=== PATIENT | female | born 1965 | race Native Hawaiian/Other Pacific Islander ===

== ENCOUNTER 2016-09-23 02:26 | Emergency (ER) | payer OTHER ==
[~2016-09-23] VITALS: Ht 162.6 cm; Wt 63.0 kg
[2016-09-23 03:07] VITALS: BP 140/92; TEMP 97.6
== END 2016-09-23 03:07 | disposition home or self-care (01) ==
LOC: ED 02:26
DX: L24.5 Irritant contact dermatitis due to other chemical products (principal)
CPT/HCPCS: 96372; 99283; J1100; J2175

== ENCOUNTER 2016-11-17 00:53 | Emergency (ER) | payer OTHER ==
[~2016-11-17] VITALS: Ht 162.6 cm; Wt 58.1 kg
[2016-11-17 01:11] VITALS: BP 130/89; TEMP 97.4
[2016-11-17 01:41] LABS: PLATELET COUNT 234 K/uL (152-353)
[2016-11-17 01:46] LABS: POTASSIUM 3.6 mmol/L (3.6-5.2); SODIUM 140 mmol/L (136-145)
== END 2016-11-17 04:45 | disposition home or self-care (01) ==
LOC: ED 00:53
DX: R45.851 Suicidal ideations (principal); F10.10 Alcohol abuse, uncomplicated; F14.90 Cocaine use, unspecified, uncomplicated
CPT/HCPCS: 80053; 80307; 80320; 80329; 81000; 85027; 99285; G0479

== ENCOUNTER 2017-02-07 05:25 | Emergency (ER) | payer OTHER ==
[~2017-02-07] VITALS: Ht 162.6 cm; Wt 59.0 kg
[2017-02-07 06:09] VITALS: BP 136/89; TEMP 97.8
== END 2017-02-07 06:09 | disposition home or self-care (01) ==
LOC: ED 05:25
DX: L02.31 Cutaneous abscess of buttock (principal)
CPT/HCPCS: 99282